=== PATIENT | female | born 1940 ===

== ENCOUNTER → 2017-08-25 | Outpatient (CLI) | payer MEDICARE, OTHER ==
[2017-08-25 16:47] LABS: INR 3.4 (0.8-1.4); PROTHROMBIN TIME PATIENT 34.4 SEC (12.2-14.7)
== END ==
LOC: HH 08:00
PROVIDERS: ATTEND Internal Medicine Clinical Cardiac Electrophysiology
DX: Z51.81 Encounter for therapeutic drug level monitoring (principal); Z79.01 Long term (current) use of anticoagulants
CPT/HCPCS: 85610

== ENCOUNTER → 2017-09-01 | Outpatient (CLI) | payer MEDICARE, OTHER ==
[2017-09-01 15:45] LABS: PROTHROMBIN TIME PATIENT 45.6 SEC (12.2-14.7)
== END ==
LOC: HH 08:00
PROVIDERS: ATTEND Internal Medicine Clinical Cardiac Electrophysiology
DX: Z51.81 Encounter for therapeutic drug level monitoring (principal); Z79.01 Long term (current) use of anticoagulants
CPT/HCPCS: 85610